=== PATIENT | female | born 1950 | race Caucasian/White ===

== ENCOUNTER → 2021-02-09 | Outpatient (CLI) | payer MEDICARE, BC ==
[2021-02-09 15:09] LABS: Appearance,BF Hazy; Nucleated Cells, Body Fluid 645 /uL; RBC, Body Fluid 13 /uL
[2021-02-09 15:12] LABS: Mononuclear WBC,Body Fluid 97 %; Polynuclear WBC,Body Fluid 3 %; Total Cells Counted,Body Fluid 100
== END | disposition home or self-care (01) ==
LOC: LABWHC1 11:34
PROVIDERS: ATTEND Physician Assistant
DX: S93.492A Sprain of other ligament of left ankle, initial encounter (principal); X58.XXXA Exposure to other specified factors, initial encounter
CPT/HCPCS: 89050; 89060